=== PATIENT | male | born 1960 | race African-American/Black ===

== ENCOUNTER 2019-07-27 13:31 | Inpatient (IN) | payer BC ==
[2019-07-27] MEDS ORDERED: NORMAL SALINE IV ONE (13:50)
--- NOTE | 2019-07-27 13:53 | ER Document Report ---
ED Medical Screen (RME) - General Chief Complaint: Abdominal Pain Stated Complaint: BOWEL ISSUES Time Seen by Provider: 07/27/19 13:40 Primary Care Provider: ELIZ FLOYD MD [Primary Care Provider] - Follow up as needed Mode of Arrival: Medic Information source: Patient, Emergency Med Personnel Notes: 59-year-old male with history of high blood pressure presents to the emergency department via EMS for fever tachycardic with recent history of constipation. Reports he is never had a problem with constipation but for the past 5 days his stomach's been hurting and he has had trouble with his bowels. He is taken a laxative had a little bit of result but it was very hard. He now reports he is having trouble voiding. Denies testicular pain. Denies vomiting. EMS did give him 975 mg of Tylenol. Has not taken his blood pressure medication today. I have greeted and performed a rapid initial assessment of this patient. A comprehensive ED assessment and evaluation of the patient, analysis of test results and completion of the medical decision making process will be conducted by additional ED providers. - Related Data Allergies/Adverse Reactions: No Known Allergies Allergy (Unverified 07/27/19 13:36) Past Medical History - Past Medical History Cardiac Medical History: Reports: Hx Hypercholesterolemia, Hx Hypertension Physical Exam - Vital signs Vitals: Temp Pulse Resp BP Pulse Ox 101.4 F H 126 H 21 H 142/79 H 97 07/27/19 13:45 07/27/19 13:45 07/27/19 13:45 07/27/19 13:45 07/27/19 13:45 Course - Vital Signs Vital signs: Temp Pulse Resp BP Pulse Ox 101.4 F H 126 H 21 H 142/79 H 97 07/27/19 13:45 07/27/19 13:45 07/27/19 13:45 07/27/19 13:45 07/27/19 13:45 Doctor's Discharge - Discharge Referrals: ELIZ FLOYD MD [Primary Care Provider] - Follow up as needed
[2019-07-27 14:18] LABS: VENOUS BLOOD BASE EXCESS 1.6 mmol/L; VENOUS BLOOD HCO3 24.2 mmol/L (20-32); VENOUS BLOOD PCO2 32.3 mmHg (35-63); VENOUS BLOOD PH 7.49 (7.30-7.42)
[2019-07-27 14:20] LABS: HEMATOCRIT 41.2 % (37.9-51.0); HEMOGLOBIN 14.3 g/dL (13.5-17.0); MEAN CORPUSCULAR HEMOGLOBIN 28.8 pg (27.0-33.4); MEAN CORPUSCULAR HGB CONC 34.7 g/dL (32.0-36.0); MEAN CORPUSCULAR VOLUME 83 fl (80-97); PLATELET COUNT 230 10^3/uL (150-450); RED BLOOD COUNT 4.96 10^6/uL (4.35-5.55); RED CELL DISTRIBUTION WIDTH 12.9 % (11.5-14.0); WHITE BLOOD COUNT 21.1 10^3/uL (4.0-10.5)
[2019-07-27] MEDS ORDERED: CEFTRIAXONE 1 GM/D5W RTU 1 GM/50 ML RTUPB IV ONE (14:30)
[2019-07-27 14:34] LABS: INTERNATIONAL RATION (INR) 1.18; PROTHROMBIN TIME 15.1 SEC (11.4-15.4)
[2019-07-27 14:38] LABS: ALBUMIN 3.8 g/dL (3.5-5.0); ALKALINE PHOSPHATASE 177 U/L (38-126); ANION GAP 10 (5-19); ASPARTATE AMINO TRANSFERASE 88 U/L (17-59); BILIRUBIN,DIRECT 0.4 mg/dL (0.0-0.4); BILIRUBIN,TOTAL 0.8 mg/dL (0.2-1.3); BLOOD UREA NITROGEN 14 mg/dL (7-20); CALCIUM 9.2 mg/dL (8.4-10.2); CARBON DIOXIDE 26 mmol/L (22-30); CHLORIDE 95 mmol/L (98-107); GLUCOSE 121 mg/dL (75-110); POTASSIUM 4.1 mmol/L (3.6-5.0); TOTAL PROTEIN 7.5 g/dL (6.3-8.2)
[2019-07-27 14:45] LABS: ABSOLUTE LYMPHOCYTES# (MANUAL) 1.3 10^3/uL (0.5-4.7); ABSOLUTE MONOCYTES # (MANUAL) 2.7 10^3/uL (0.1-1.4); BASOPHILS % (MANUAL) 0 % (0-2); EOSINOPHILS % (MANUAL) 0 % (0-6); LYMPHOCYTES % (MANUAL) 6 % (13-45); MONOCYTES % (MANUAL) 13 % (3-13); SEGMENTED NEUTROPHILS % (MAN) 81 % (42-78); TOTAL CELLS COUNTED 100
[2019-07-27 14:47] LABS: PLATELET COMMENT ADEQUATE
[2019-07-27 15:49] LABS: APPEARANCE,URINE SLIGHTLY-CLOUDY; BILIRUBIN,URINE NEGATIVE (NEGATIVE); COLOR,URINE AMBER; GLUCOSE, URINE NEGATIVE (NEGATIVE); KETONES,URINE TRACE mg/dL (NEGATIVE); PROTEIN,URINE 30 mg/dL (NEGATIVE); URINE SPECIFIC GRAVITY 1.018
[2019-07-27] MEDS ORDERED: MORPHINE SULFATE 10 MG/ML INJ IV ONE ×2 (16:18→18:28)
[2019-07-27] MEDS ORDERED: ONDANSETRON HCL INJ/PF 4 MG/2 ML SDV IV ONE (16:19)
--- NOTE | 2019-07-27 18:15 | RADIOLOGY REPORT (SQ) ---
EXAM DESCRIPTION: CT ABD/PELVIS WITH IV ORAL IMAGES COMPLETED DATE/TIME: 07/27/2019 4:54 pm REASON FOR STUDY: abdominal pain. Diffuse abdominal pain. COMPARISON: None. TECHNIQUE: CT scan of the abdomen and pelvis performed using helical scanning technique with dynamic intravenous contrast injection. No oral contrast. Images reviewed with lung, soft tissue, and bone windows. Reconstructed coronal and sagittal MPR images reviewed. Delayed images for evaluation of the urinary system also acquired. All images stored on PACS. All CT scanners at this facility use dose modulation, iterative reconstruction, and/or weight based d osing when appropriate to reduce radiation dose to as low as reasonably achievable (ALARA). [facility]: Dose Right [facility]: CareDose [facility]: Dose Right [facility]: Teradose 4D [facility]: freee CONTRAST TYPE AND DOSE: contrast/concentration: Isovue 350.00 mg/ml; Total Contrast Delivered: 98.0 ml; Total Saline Delivered: 72.0 ml RENAL FUNCTION: Creatinine 1.11 today. RADIATION DOSE: CT Rad equipment meets quality standard of care and radiation dose reduction techniq ues were employed. CTDIvol: 9.3 - 13.6 mGy. DLP: 1343 mGy-cm.. LIMITATIONS: None. FINDINGS: LOWER CHEST: No significant findings. No nodules or infiltrates. LIVER: The liver has normal size and contour. There is mild diffuse hepatic steatosis. No focal hep atic mass. Hepatic and portal veins are patent. No biliary ductal dilation. SPLEEN: Normal size. No focal lesions. PANCREAS: No masses. No significant calcifications. No adjacent inflammation or peripancreatic fluid collections. Pancreatic duct not dilated. GALLBLADDER: No identified stones by CT criteria. No inflammatory changes to suggest cholecystitis. ADRENAL GLANDS: No significant masses or asymmetry. RIGHT KIDNEY AND URETER: No solid masses. No significant calcifications. There is mild hydronephr osis and hydroureter to the level of the urinary bladder. LEFT KIDNEY AND URETER: No solid masses. No significant calcifications. There is mild hydronephro sis and hydroureter to the level of the urinary bladder. AORTA AND VESSELS: No aneurysm. No dissection. Renal arteries, SMA, celiac without stenosis. RETROPERITONEUM: No retroperitoneal adenopathy, hemorrhage or masses. BOWEL AND PERITONEAL CAVITY: No masses or inflammatory changes. No free fluid or peritoneal masses. APPENDIX: Normal. PELVIS: The prostate is moderately enlarged with mass effect on the urinary bladder. Urinary bladder is markedly distended. No bladder wall thickening, intraluminal bladder mass or debris. ABDOMINAL WALL: No masses. No hernias. BONES: Moderate osteoarthritis bilateral hips. No suspicious bone lesions. OTHER: Bilateral hydroceles noted. IMPRESSION: 1. Markedly distended urinary bladder and mild bilateral hydronephrosis suggestive of bladder outlet obstruction. Clinical correlation. 2. Prostatomegaly. This may contribute to the bladder outlet obstruction. 3. Mild hepatic steatosis. TECHNICAL DOCUMENTATION: JOB ID: [id number] Quality ID # [id number]: Final reports with documentation of one or more dose reduction techniques (e.g., Au tomated exposure control, adjustment of the mA and/or kV according to patient size, use of iterative reconstruction technique) 2010 [employer]- All Rights Reserved Reading location - IP/workstation name: [email or web address]
[2019-07-27] MEDS ORDERED: LEVOFLOXACIN 750 MG/D5W RTU 750 MG/150 ML RTUPB IV ONE (18:29)
[2019-07-27] MEDS ORDERED: NORMAL SALINE 1000 ML 1,000 ML IV ONE ×2 (19:14→21:38)
--- NOTE | 2019-07-27 21:43 | RADIOLOGY REPORT (SQ) ---
EXAM DESCRIPTION: X-RAY CHEST 1 VIEW CLINICAL HISTORY: 59 years, Male, tachycardia COMPARISON: None. FINDINGS: Portable semiupright chest at 2124 hours on 07/27/2019. Two films are presented to include the costophrenic angles. EKG leads overlie the chest. The lungs are well expanded and clear. The costophrenic angles are sharp. The cardiac silhouette, hilar regions, trachea, soft tissues and bony structures are unremarkable aside from degenerative changes. IMPRESSION: No acute cardiopulmonary disease.
[2019-07-27 22:02] LABS: HEMATOCRIT 37.9 % (37.9-51.0); HEMOGLOBIN 12.9 g/dL (13.5-17.0); MEAN CORPUSCULAR HEMOGLOBIN 28.6 pg (27.0-33.4); MEAN CORPUSCULAR VOLUME 84 fl (80-97); PLATELET COUNT 212 10^3/uL (150-450); RED BLOOD COUNT 4.51 10^6/uL (4.35-5.55); RED CELL DISTRIBUTION WIDTH 13.1 % (11.5-14.0); WHITE BLOOD COUNT 21.6 10^3/uL (4.0-10.5)
[2019-07-27 22:20] LABS: ABSOLUTE LYMPHOCYTES# (MANUAL) 0.6 10^3/uL (0.5-4.7); ABSOLUTE MONOCYTES # (MANUAL) 1.9 10^3/uL (0.1-1.4); BAND NEUTROPHILS % (MANUAL) 4 % (3-5); BASOPHILS % (MANUAL) 0 % (0-2); EOSINOPHILS % (MANUAL) 0 % (0-6); LYMPHOCYTES % (MANUAL) 3 % (13-45); MONOCYTES % (MANUAL) 9 % (3-13); SEGMENTED NEUTROPHILS % (MAN) 84 % (42-78); TOTAL CELLS COUNTED 100
[2019-07-27 22:21] LABS: TOXIC GRANULATION 1+; TOXIC VACUOLATION PRESENT
[2019-07-27 22:22] LABS: BURR CELLS SLIGHT; PLATELET COMMENT ADEQUATE; POIKILOCYTOSIS SLIGHT
[2019-07-27 22:29] LABS: NT PRO BNP 781 pg/mL (<125)
[2019-07-27 22:32] LABS: TROPONIN I < 0.012 ng/mL
[2019-07-27 22:48] LABS: PROSTATE SPECIFIC ANTIGEN 9.13 ng/mL (<4.00)
[2019-07-27] MEDS ORDERED: HYDROMORPHONE HCL INJ/PF 2 MG/ML AMPULE IV ONE (23:17)
--- NOTE | 2019-07-28 00:27 | RADIOLOGY REPORT (SQ) ---
EXAM DESCRIPTION: CT pulmonary angiogram of the chest. CLINICAL HISTORY: 59 years Male; TACHYCARDIA, ELEVATED D DIMER TECHNIQUE: CT angiogram of the chest using intravenous contrast.. MIP reconstructions were performed. All CT scans at this facility use dose modulation, iterative reconstruction, and/or weight based dosing when appropriate to reduce radiation dose to as low as reasonably achievable. COMPARISON: None. FINDINGS: Chest: Vascular: No filling defects in the central pulmonary arteries. Lungs: Minimal volume loss is noted in the lung bases right greater than left. No focal consolidation. No pleural effusion or pneumothorax. Mediastinum: Heart size is normal. Coronary artery calcifications. No pericardial abnormality. No mediastinal or hilar lymphadenopathy. Small sliding hiatal hernia. Bones and soft tissues: Flowing syndesmophytes are seen in the anterior aspect of the thoracic spine. No destructive bone lesions. Soft tissues are unremarkable. No axillary lymphadenopathy. Small amount of soft tissues is seen deep to the nipples bilaterally consistent with very mild gynecomastia. Upper Abdomen: Visualized portion of the upper abdomen is unremarkable. IMPRESSION: 1. No pulmonary embolism. 2. Mild volume loss in the lung bases right greater than left.
[2019-07-28] MEDS ORDERED: PROMETHAZINE HCL INJ 25 MG/1 ML VIAL IV PRN (02:44)
[2019-07-28] MEDS ORDERED: MAG HYDROX/AL HYDROX/SIMETH SUSP 30 ML UDCUP PO PRN (02:44)
[2019-07-28] MEDS ORDERED: MAGNESIUM HYDROXIDE SUSP 30 ML UDCUP PO PRN (02:44)
[2019-07-28] MEDS ORDERED: ACETAMINOPHEN 325 MG TABLET PO PRN (02:49)
[2019-07-28] MEDS ORDERED: MORPHINE SULFATE 10 MG/ML INJ IV PRN ×3 (02:49)
[2019-07-28] MEDS ORDERED: LORAZEPAM INJ 2 MG/1 ML VIAL IV PRN (02:49)
[2019-07-28] MEDS ORDERED: NICOTINE 21 MG/24 HR PATCH.TD24 TD PRN (02:49)
[2019-07-28] MEDS ORDERED: HYDROMORPHONE HCL INJ/PF 2 MG/ML AMPULE IV PRN (02:55)
[2019-07-28] MEDS ORDERED: HYDROMORPHONE HCL INJ 2 MG/ML 20 ML MDV IV PRN ×3 (03:05)
[2019-07-28] MEDS ORDERED: HYDROCORTISONE ACETATE 25 MG SUPP.RECT PR PRN (05:54)
[2019-07-28] MEDS: HEPARIN SOD (PORCINE) 5,000 UNIT/ML 1 ML VIAL SUBCUT SCH ×3 (06:00→22:40)
[2019-07-28] MEDS: PANTOPRAZOLE SODIUM 40 MG TABLET.DR PO SCH ×2 (06:00→17:09)
--- NOTE | 2019-07-28 06:02 | PDOC H&P ---
History of Present Illness Admission Date/PCP: 07/28/2019 02:19 SILVIA ZAMBRANO MD Patient complains of: Constipation History of Present Illness: YUNI CHEN is a 59 year old male who presents the emergency room with a one-week history of constipation. He admits developing constipation about a week ago and tried [id number] laxatives without relief. 5 days ago he saw his primary care provider and was given a stool softener and rectal suppositories as treatment for hemorrhoids. He had very minimal results with this treatment and found that he had to strain very hard to produce very little stool. Since that time he is continued to be constipated and has developed difficulty passing his urine requiring a great deal of straining to produce very little urine with the need to urinate very frequently. He has also noted a gradually increasing pressure and fullness in his lower abdomen becoming exquisitely severe prior to his emergency room visit. He denies prior similar episodes. He denies other associated or accompanying signs and symptoms. He has not identified any additional aggravating or ameliorating factors for his constipation. In the emergency room he was found to have a fever of 101.4 F with a tachycardia in the 120s to 140s. His venous blood gases indicated severe hyperventilation. He was also noted to have a white blood count of 21,100 and a lactic acid of 2.1. He was treated with IV fluids and a Mack catheter was placed to remove approximately 2000 mL of urine from his urinary bladder. He was subsequently admitted to the hospital for further evaluation treatment. Past Medical History Cardiac Medical History: Reports: Hyperlipidema, Hypertension Denies: Atrial Fibrillation, Congestive Heart Failure, Coronary Artery Disease, DVT, Myocardial Infarction, Pulmonary Embolism Pulmonary Medical History: Denies: Asthma, Chronic Obstructive Pulmonary Disease (COPD) EENT Medical History: Denies: Cataracts, Ears - Hearing aids Neurological Medical History: Denies: Hemorrhagic CVA, Ischemic CVA, Seizures Endocrine Medical History: Denies: Diabetes Mellitus Type 1, Diabetes Mellitus Type 2, Hyperthyroidism, Hypothyroidism, Obesity Renal/ Medical History: Reports: Other - Benign prostatic hyperplasia Denies: Chronic Kidney Disease, Nephrolithiasis Malignancy Medical History: Reports: None GI Medical History: Denies: Cirrhosis, Crohn's Disease, Gastroesophageal Reflux Disease, Hepatitis, Peptic Ulcer Disease, Ulcerative Colitis Musculoskeltal Medical History: Denies: Arthritis, Gout Skin Medical History: Denies: Eczema, Psoriasis Psychiatric Medical History: Reports: Tobacco Dependency Denies: Alcohol Dependency, Substance Abuse Hematology: Denies: Anemia, Bleeding Tendencies Infectious Medical History: Reports: None Past Surgical History Past Surgical History: Reports: None Social History Information Source: Patient Lives with: Spouse/Significant other Smoking Status: Current Every Day Smoker Cigarettes Packs Per Day: 0.1 Electronic Cigarette use?: No Frequency of Alcohol Use: None Hx Recreational Drug Use: No Drugs: None Hx Prescription Drug Abuse: No - Advance Directive Resuscitation Status: Full Code Surrogate healthcare decision maker:: Florinda Chen Family History Family History: denies: CAD, CVA, DM, Hyperlipidemia, Hypertension, Malignancy Parental Family History Reviewed: Yes Children Family History Reviewed: No Sibling(s) Family History Reviewed.: Yes Medication/Allergy Home Medications: Amlodipine Besylate [Norvasc 10 mg Tablet] 10 mg PO DAILY 07/27/19 Atorvastatin Calcium [Lipitor 20 mg Tablet] 20 mg PO QHS 07/27/19 Ciprofloxacin HCl [Cipro 500 mg Tablet] 500 mg PO BID #20 tablet 07/27/19 Finasteride [Proscar 5 mg Tablet] 5 mg PO DAILY #30 tablet 07/27/19 Tamsulosin HCl [Flomax] 0.4 mg PO DAILY 07/27/19 Allergies/Adverse Reactions: No Known Allergies Allergy (Unverified 07/27/19 13:36) Review of Systems Constitutional: ABSENT: chills, fever(s) Eyes: ABSENT: visual disturbances, other - Eye pain Ears: ABSENT: hearing changes, other - Ear pain Nose, Mouth, and Throat: ABSENT: headache(s), sore throat Cardiovascular: ABSENT: chest pain, palpitations Respiratory: ABSENT: cough, dyspnea Gastrointestinal: PRESENT: as per HPI, abdominal pain, constipation. ABSENT: diarrhea, hematochezia, melena, nausea, vomiting Genitourinary: PRESENT: as per HPI, difficulty urinating, nocturia, other - Extreme urinary frequency. ABSENT: dysuria, hematuria Musculoskeletal: ABSENT: back pain, joint swelling, muscle weakness Integumentary: ABSENT: pruritus, rash Neurological: ABSENT: confusion, convulsions, focal weakness, memory loss, syncope Psychiatric: ABSENT: anxiety, depression Endocrine: ABSENT: cold intolerance, heat intolerance, polydipsia, polyphagia, polyuria Hematologic/Lymphatic: ABSENT: easy bleeding, easy bruising Allergic/Immunologic: ABSENT: seasonal rhinorrhea Physical Exam Vital Signs: Temp Pulse Resp BP Pulse Ox 99.8 F 126 H 25 H 152/84 H 94 07/27/19 20:20 07/27/19 13:45 07/28/19 01:00 07/27/19 23:02 07/28/19 01:00 Intake & Output 07/26/19 07/27/19 07/28/19 23:59 23:59 23:59 Intake Total 4790 Output Total 3425 Balance 1365 Weight 86.183 kg General appearance: PRESENT: no acute distress, cooperative Head exam: PRESENT: atraumatic, normocephalic Eye exam: ABSENT: conjunctival injection, scleral icterus Ear exam: PRESENT: normal external ear exam. ABSENT: bleeding, drainage Mouth exam: PRESENT: dry mucosa, neck supple Neck exam: ABSENT: thyromegaly, tracheal deviation Respiratory exam: PRESENT: clear to auscultation becca, symmetrical, unlabored Cardiovascular exam: PRESENT: RRR, tachycardia. ABSENT: clicks, gallop, rubs Vascular exam: PRESENT: normal capillary refill. ABSENT: pallor GI/Abdominal exam: PRESENT: normal bowel sounds, soft. ABSENT: tenderness Rectal exam: PRESENT: deferred Extremities exam: ABSENT: joint swelling, pedal edema Musculoskeletal exam: ABSENT: deformity, dislocation Neurological exam: PRESENT: CN II-XII grossly intact. ABSENT: alert, oriented to person, oriented to place, oriented to time, oriented to situation, motor sensory deficit Psychiatric exam: PRESENT: appropriate affect, normal mood Skin exam: PRESENT: dry, intact, warm. ABSENT: jaundice, rash, urticaria Results Laboratory Results: 07/27/19 21:49 07/27/19 14:00 07/27/19 07/27/19 07/27/19 14:00 14:00 14:00 WBC 21.1 H RBC 4.96 Hgb 14.3 Hct 41.2 MCV 83 MCH 28.8 MCHC 34.7 RDW 12.9 Plt Count 230 Seg Neutrophils % Not Reportable VBG pH 7.49 H VBG pCO2 32.3 L VBG HCO3 24.2 VBG Base Excess 1.6 Sodium 130.8 L Potassium 4.1 Chloride 95 L Carbon Dioxide 26 Anion Gap 10 BUN 14 Creatinine 1.11 Est GFR ( Amer) > 60 Glucose 121 H Lactic Acid Calcium 9.2 Total Bilirubin 0.8 AST 88 H Alkaline Phosphatase 177 H Total Protein 7.5 Albumin 3.8 Prostate Specific Ag TSH Urine Color Urine Appearance Urine pH Ur Specific [place] Urine Protein Urine Glucose (UA) Urine Ketones Urine Blood Urine RBC (Auto) 07/27/19 07/27/19 07/27/19 14:00 15:22 17:04 WBC RBC Hgb Hct MCV MCH MCHC RDW Plt Count Seg Neutrophils % VBG pH VBG pCO2 VBG HCO3 VBG Base Excess Sodium Potassium Chloride Carbon Dioxide Anion Gap BUN Creatinine Est GFR ( Amer) Glucose Lactic Acid 1.9 2.1 Calcium Total Bilirubin AST Alkaline Phosphatase Total Protein Albumin Prostate Specific Ag TSH Urine Color VIMAL Urine Appearance SLIGHTLY-CLOUDY Urine pH 5.0 Ur Specific [place] 1.018 Urine Protein 30 H Urine Glucose (UA) NEGATIVE Urine Ketones TRACE H Urine Blood NEGATIVE Urine RBC (Auto) 2 07/27/19 07/27/19 07/27/19 20:15 21:49 21:49 WBC 21.6 H RBC 4.51 Hgb 12.9 L Hct 37.9 MCV 84 MCH 28.6 MCHC 34.0 RDW 13.1 Plt Count 212 Seg Neutrophils % Not Reportable VBG pH VBG pCO2 VBG HCO3 VBG Base Excess Sodium Potassium Chloride Carbon Dioxide Anion Gap BUN Creatinine Est GFR ( Amer) Glucose Lactic Acid 1.0 Calcium Total Bilirubin AST Alkaline Phosphatase Total Protein Albumin Prostate Specific Ag TSH 1.91 Urine Color Urine Appearance Urine pH Ur Specific [place] Urine Protein Urine Glucose (UA) Urine Ketones Urine Blood Urine RBC (Auto) 07/27/19 21:49 WBC RBC Hgb Hct MCV MCH MCHC RDW Plt Count Seg Neutrophils % VBG pH VBG pCO2 VBG HCO3 VBG Base Excess Sodium Potassium Chloride Carbon Dioxide Anion Gap BUN Creatinine Est GFR ( Amer) Glucose Lactic Acid Calcium Total Bilirubin AST Alkaline Phosphatase Total Protein Albumin Prostate Specific Ag 9.130 H TSH Urine Color Urine Appearance Urine pH Ur Specific [place] Urine Protein Urine Glucose (UA) Urine Ketones Urine Blood Urine RBC (Auto) 07/27/19 07/27/19 21:49 21:49 Creatine Kinase 462 H Troponin I < 0.012 NT-Pro-B Natriuret Pep 781 H Impressions: Abdomen/Pelvis CT 07/27/19 00:00 IMPRESSION: 1. Markedly distended urinary bladder and mild bilateral hydronephrosis suggestive of bladder outlet obstruction. Clinical correlation. 2. Prostatomegaly. This may contribute to the bladder outlet obstruction. 3. Mild hepatic steatosis. Chest X-Ray 07/27/19 20:55 IMPRESSION: No acute cardiopulmonary disease. Chest/Abdomen CTA 07/27/19 23:16 IMPRESSION: 1. No pulmonary embolism. 2. Mild volume loss in the lung bases right greater than left. Assessment and Plan - Diagnosis (1) Acute urinary retention Is this a current diagnosis for this admission?: Yes (2) SIRS (systemic inflammatory response syndrome) Is this a current diagnosis for this admission?: Yes (3) Fever Qualifiers: Fever type: unspecified Qualified Code(s): R50.9 - Fever, unspecified Is this a current diagnosis for this admission?: Yes (4) Tachycardia Is this a current diagnosis for this admission?: Yes (5) Leukocytosis Qualifiers: Leukocytosis type: unspecified Qualified Code(s): D72.829 - Elevated white blood cell count, unspecified Is this a current diagnosis for this admission?: Yes (6) Elevated lactic acid level Is this a current diagnosis for this admission?: Yes (7) Prostatic hypertrophy Is this a current diagnosis for this admission?: Yes (8) Constipation Qualifiers: Constipation type: unspecified constipation type Qualified Code(s): K59.00 - Constipation, unspecified Is this a current diagnosis for this admission?: Yes (9) Hypertension Qualifiers: Hypertension type: essential hypertension Qualified Code(s): I10 - Essential (primary) hypertension Is this a current diagnosis for this admission?: Yes (10) Hyperlipidemia Qualifiers: Hyperlipidemia type: unspecified Qualified Code(s): E78.5 - Hyperlipidemia, unspecified Is this a current diagnosis for this admission?: Yes (11) Tobacco use disorder, continuous Is this a current diagnosis for this admission?: Yes - Plan Summary Summary: Patient is admitted to the telemetry floor where he will receive routine supportive and symptomatic cares. He will be continued on IV fluids and will also be continued with an indwelling Mack catheter. Urology consultation will be obtained when available. He will use Dilaudid 0.5 to 2 mg IV every 2 hours as needed for pain, using a sliding scale for dosage. He may have Ativan 1 mg IV every 4 hours as needed restlessness or anxiety. Serial lactic acids will be obtained. CBCs, metabolic profiles and magnesium levels will be obtained as needed. The patient's home medications for treatment of his hypertension and hyperlipidemia will be started, if appropriate, as soon as his medication list has been verified and reconciled. In the interim the patient will be treated with metoprolol tartrate 5 mg IV every 4 hours as needed for hypertension or tachycardia. Patient will be treated with a cardiac diet. A nicotine replacement patch will be available for the patient's use, if desired. - Time Time Spent with patient: 25-34 minutes Smoking Cessation Education: 3 to 10 minutes Medications reviewed and adjusted accordingly: Yes Anticipated discharge: Home - Inpatient Certification Based on my medical assessment, after consideration of the patient's comorbidities, presenting symptoms, or acuity I expect that the services needed warrant INPATIENT care.: Yes I certify that my determination is in accordance with my understanding of Medicare's requirements for reasonable and necessary INPATIENT services [42 CFR 412.3e].: Yes Medical Necessity: Need Close Monitoring Due to Risk of Patient Decompensation, Need For IV Fluids, Need For Continuous Telemetry Monitoring, Need for Pain Control, Risk of Complication if Not Cared For in Hospital, Risk of Diagnosis Which Will Require Inpatient Eval/Care/Monitoring
[2019-07-28] MEDS: TAMSULOSIN HCL 0.4 MG CAP.SR.24H PO SCH (10:12)
[2019-07-28] MEDS: DOCUSATE SODIUM 100 MG CAPSULE PO SCH ×2 (10:12→17:09)
--- NOTE | 2019-07-28 10:17 | ER Document Report ---
Entered by ALICE DELGADO SCRIBE 07/27/19 1516 Acting as scribe for:CAMERON VARGAS MD ED General <AKUA LEON IV - Last Filed: 07/28/19 01:52> - General Mode of Arrival: Medic Information source: Patient <CAMERON VARGAS - Last Filed: 07/28/19 10:17> - General Chief Complaint: Abdominal Pain Stated Complaint: BOWEL ISSUES Time Seen by Provider: 07/27/19 13:40 Notes: This 59-year-old male presents to the emergency department complaining of constipation for the past week. Patient said that his gave him a laxative 5 days ago which provided no relief. He scheduled a visit to his local physician that same day. Patient reports that physician stated that if he still had not had a stool by tomorrow then they would consider an enema. Patient said that night he had a stool but was strained and had pain. He called his physician and patient said that the physician treated him as he had hemorrhoids. Patient was prescribed stool softener and a suppository. Patient states that he has been taking these medications with no relief. Patient said that he now is having troubles with urinating. Patient states that he has to "push really hard for the urine to come out". Patient said that last night, he had no stool pass and was waking up every 20 minutes to use the restroom to urinate but still had to force the action. EMS and Nurse reports fever. Patient denies rectal bleeding. (CAMERON VARGAS) - Related Data Allergies/Adverse Reactions: No Known Allergies Allergy (Unverified 07/27/19 13:36) Past Medical History - General Information source: Patient, Emergency Med Personnel - Social History Smoking Status: Current Some Day Smoker Cigarette use (# per day): Yes Chew tobacco use (# tins/day): No Family History: Reviewed & Not Pertinent Patient has suicidal ideation: No Patient has homicidal ideation: No - Past Medical History Cardiac Medical History: Reports: Hx Hypercholesterolemia, Hx Hypertension Surgical Hx: Negative <CAMERON VARGAS - Last Filed: 07/28/19 10:17> Review of Systems - Review of Systems Constitutional: See HPI, Fever EENT: No symptoms reported Cardiovascular: No symptoms reported Respiratory: No symptoms reported Gastrointestinal: See HPI, Constipation. denies: Rectal bleeding Genitourinary: No symptoms reported Male Genitourinary: No symptoms reported Musculoskeletal: No symptoms reported Skin: No symptoms reported Hematologic/Lymphatic: No symptoms reported Neurological/Psychological: No symptoms reported -: Yes All other systems reviewed and negative <CAMERON VARGAS - Last Filed: 07/28/19 10:17> Physical Exam <VARGASCAMERON Farnaz - Last Filed: 07/28/19 10:17> - Vital signs Vitals: Resp Pulse Ox 22 H 98 07/27/19 13:42 07/27/19 13:42 - Notes Notes: Physical Exam: General: Alert, appears uncomfortable. Patient had an urine incontinence just prior to walking in the room for exam. HEENT: Normocephalic. Atraumatic. PERRL. Extraocular movements intact. Oropharynx clear. Dry mucous membrane. Neck: Supple. Non-tender. Respiratory: No respiratory distress. Clear and equal breath sounds bilaterally. Cardiovascular: Tachycardic. HR 130. No murmur. Abdominal: LQ tenderness to palpation on initial exam and after Mack catheter placed LQ is non-tender. No distension. Normal Bowel Sounds. Back: No gross abnormalities. Extremities: Moves all four extremities. Upper extremities: Normal inspection. Normal ROM. Lower extremities: Normal inspection. No edema. Normal ROM. Neurological: Normal cognition. AAOx4. Normal speech. Psychological: Normal affect. Normal Mood. Skin: Warm. Dry. Normal color. (CAMERON VARGAS) Course - Laboratory Result Diagrams: 07/27/19 21:49 07/27/19 14:00 - Consults DR. SILVA Time consulted: 01:47 - DR. SILVA AGREED TO ADMIT PT Consulted provider: will see as inpatient DR. ACUÑA Time consulted: 23:13 - AGREED THAT PT COULD HAVE CT CHEST DONE <AKUA LEON IV - Last Filed: 07/28/19 01:52> - Laboratory Result Diagrams: 07/27/19 21:49 07/27/19 14:00 - Diagnostic Test Radiology reviewed: Image reviewed, Reports reviewed - Transfer of Care Care transferred to following provider: Dr. Leon <CAMERON VARGAS - Last Filed: 07/28/19 10:17> - Re-evaluation Re-evalutation: 07/27/19 21:23 Patient has received 3+ liters of normal saline and still has a sinus tachycardi a rate of 125. Patient saturations 95%. Pending at this time is a portable chest x-ray to rule out cardiomegaly CHF. 07/27/19 21:33 Large from the radiology department there is VQ scan is not a ventilation perfusion scan at this time due to the all the circumstances going on with a viral illness coronavirus. Cell is only a perfusion scan is done which really does not give us the answer of any kind ventilation perfusion mismatch therefore the ventilation/perfusion VQ scan that was ordered is canceled. Plan is to determine if patient can receive another IV liter of fluids he is already impro ving down to sinus tach around 125 at this time. Patient will be signed out to Dr. leon to further evaluate patient's sinus tachycardia. (CAMERON VARGAS) - Vital Signs Vital signs: Temp Pulse Resp BP Pulse Ox 98.8 F 120 H 16 135/65 H 98 07/28/19 07:40 07/28/19 07:40 07/28/19 07:40 07/28/19 07:40 07/28/19 07:40 - Laboratory Laboratory results interpreted by me: 07/27/19 07/27/19 07/27/19 14:00 14:00 14:00 WBC 21.1 H Hgb Seg Neuts % (Manual) 81 H Lymphocytes % (Manual) 6 L Abs Neuts (Manual) 17.1 H Abs Monocytes (Manual) 2.7 H D-Dimer VBG pH 7.49 H VBG pCO2 32.3 L Sodium 130.8 L Chloride 95 L Glucose 121 H POC Glucose AST 88 H ALT 83 H Alkaline Phosphatase 177 H Creatine Kinase NT-Pro-B Natriuret Pep Prostate Specific Ag Urine Protein Urine Ketones Urine Urobilinogen 07/27/19 07/27/19 07/27/19 14:08 15:22 21:49 WBC 21.6 H Hgb 12.9 L Seg Neuts % (Manual) 84 H Lymphocytes % (Manual) 3 L Abs Neuts (Manual) 19.0 H Abs Monocytes (Manual) 1.9 H D-Dimer VBG pH VBG pCO2 Sodium Chloride Glucose POC Glucose 113 H AST ALT Alkaline Phosphatase Creatine Kinase NT-Pro-B Natriuret Pep Prostate Specific Ag Urine Protein 30 H Urine Ketones TRACE H Urine Urobilinogen 2.0 H 07/27/19 07/27/19 07/27/19 21:49 21:49 21:49 WBC Hgb Seg Neuts % (Manual) Lymphocytes % (Manual) Abs Neuts (Manual) Abs Monocytes (Manual) D-Dimer 4.34 H VBG pH VBG pCO2 Sodium Chloride Glucose POC Glucose AST ALT Alkaline Phosphatase Creatine Kinase 462 H NT-Pro-B Natriuret Pep 781 H Prostate Specific Ag 9.130 H Urine Protein Urine Ketones Urine Urobilinogen Patient's urinalysis does not disclose any evidence for infection. 07/27/19 21:24 (CAMERON VARGAS) - Diagnostic Test Radiology results interpreted by me: 07/27/19 21:23 CT scan of abdomen pelvis with oral and IV contrast disclose bladder outlet obstruction due to prostate megaly. Patient also had bilateral hydronephrosis on both sides. Patient has a normal kidney function at this time. 07/27/19 21:39 Chest x-ray does not show cardiomegaly or any signs of congestive heart failure. Normal-sized heart bones look dense or hyperdense. No fracture seen ribs appear to be expanded space between the ribs question whether or not patient has COPD. (CAMERON VARGAS) - EKG Interpretation by Me Additional EKG results interpreted by me: 07/27/19 21:22 Twelve-lead EKG done today 918. Shows sinus tachycardia rate of [address]-T wave changes. (CAMERON VARGAS) - Consults DR. SILVA Reason for consultation: 07/28/19 01:47 SIRS (AKUA LEON IV) DR. ACUÑA Reason for consultation: 07/28/19 01:53 CLEARANCE FOR CTA CHEST (AKUA LEON IV) Discharge - Discharge Admitting Provider: Todd (Hospitalist) Unit Admitted: Telemetry <AKUA LEON IV - Last Filed: 07/28/19 01:52> <CAMERON VARGAS - Last Filed: 07/28/19 10:17> - Discharge Clinical Impression: Bladder outlet obstruction, Sinus tachycardia, SIRS (systemic inflammatory response syndrome) Leukocytosis Qualifiers: Leukocytosis type: other Qualified Code(s): D72.828 - Other elevated white blood cell count Condition: Good Disposition: ADMITTED INPATIENT I personally performed the services described in the documentation, reviewed and edited the documentation which was dictated to the scribe in my presence, and it accurately records my words and actions.
--- NOTE | 2019-07-28 10:48 | Progress Note ---
Provider Note Provider Note: 07/28/2019 Patient was admitted through the emergency room last night for what was thought to be constipation. However CT of the chest as well as abdomen and pelvis revealed hydronephrosis and a "full bladder" as well as a significantly enlarged prostate. This was actually causing bladder outlet obstruction. Patient tells me about 6 days ago he started having abdominal pain and unable to have a bowel movement. He actually went to an urgent care and they told him to do [id number] laxatives and stool softeners and fleets enemas. Doubt he has not been voiding hardly at all this week due to his enlarged prostate. This caused him to have constipation issues as well, none of his radiographic studies show bowel obstruction or a large amount of stool. Patient states he is never been told he had prostate problems before and is never been to a urologist. 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 She was given Flomax last night in the emergency room. Patient was given also a dose of IV Rocephin and Levaquin in the ER. His white count was elevated to 21,000 on admission and patient did have a fever of 101.4 This morning his temperature is 98.7 still slightly tachycardic at 130 blood pressure is up 152/84. Lactic acid level is normal. Dimer was elevated to 4.[address] angiogram was negative for PE.. Also last night in the ER patient had a Mack catheter inserted which resulted in 2 L of fluid Going to continue patient on IV antibiotics, continue Mack catheter, continue proscar 5 mg daily and add Cardura 2 mg at nighttime. Probably discharge patient tomorrow with a Mack catheter in place, leg bag, also continue antibiotics and also continue meds for BPH. Also need a appointment as an outpatient with urology.
--- NOTE | 2019-07-28 11:04 | EKG REPORT ---
SEVERITY:- OTHERWISE NORMAL ECG - SINUS TACHYCARDIA : Confirmed by: Yin Sen 28-Jul-2019 11:04:08
--- NOTE | 2019-07-28 11:04 | EKG REPORT ---
SEVERITY:- OTHERWISE NORMAL ECG - SINUS TACHYCARDIA : Confirmed by: Yin Sen 28-Jul-2019 11:03:58
[2019-07-28] MEDS: FINASTERIDE 5 MG TABLET PO SCH (12:51)
[2019-07-28] MEDS: METOPROLOL TARTRATE PF/INJ 5 MG/5 ML SDV IV PRN ×2 (16:05→20:29)
[2019-07-28] MEDS ORDERED: DOXAZOSIN MESYLATE 2 MG TABLET PO SCH (22:00)
[2019-07-28] MEDS: ATORVASTATIN CALCIUM 20 MG TABLET PO SCH (22:40)
[2019-07-29] MEDS: PANTOPRAZOLE SODIUM 40 MG TABLET.DR PO SCH ×2 (05:41→17:04)
[2019-07-29] MEDS: HEPARIN SOD (PORCINE) 5,000 UNIT/ML 1 ML VIAL SUBCUT SCH ×3 (05:41→22:25)
[2019-07-29 06:03] LABS: HEMOGLOBIN 12.7 g/dL (13.5-17.0); MEAN CORPUSCULAR HEMOGLOBIN 28.6 pg (27.0-33.4); MEAN CORPUSCULAR HGB CONC 34.3 g/dL (32.0-36.0); MEAN CORPUSCULAR VOLUME 84 fl (80-97); PLATELET COUNT 211 10^3/uL (150-450); RED BLOOD COUNT 4.44 10^6/uL (4.35-5.55); RED CELL DISTRIBUTION WIDTH 13.1 % (11.5-14.0); WHITE BLOOD COUNT 21.5 10^3/uL (4.0-10.5)
[2019-07-29 06:39] LABS: ALBUMIN 3.1 g/dL (3.5-5.0); ALKALINE PHOSPHATASE 193 U/L (38-126); ANION GAP 11 (5-19); ASPARTATE AMINO TRANSFERASE 116 U/L (17-59); BILIRUBIN,DIRECT 0.2 mg/dL (0.0-0.4); BILIRUBIN,TOTAL 0.6 mg/dL (0.2-1.3); BLOOD UREA NITROGEN 12 mg/dL (7-20); CALCIUM 8.5 mg/dL (8.4-10.2); CARBON DIOXIDE 22 mmol/L (22-30); CHLORIDE 99 mmol/L (98-107); CHOLESTEROL 102.69 mg/dL (0-200); GLUCOSE 93 mg/dL (75-110); POTASSIUM 3.7 mmol/L (3.6-5.0); TOTAL PROTEIN 6.2 g/dL (6.3-8.2); TRIGLYCERIDES 166 mg/dL (<150)
[2019-07-29 06:50] LABS: DIRECT LDL 32 mg/dL (<100)
[2019-07-29 06:52] LABS: VLDL CHOLESTEROL 33.2 mg/dL (10-31)
[2019-07-29] MEDS: LEVOFLOXACIN 750 MG/D5W RTU 750 MG/150 ML RTUPB IV SCH (10:22)
[2019-07-29] MEDS: TAMSULOSIN HCL 0.4 MG CAP.SR.24H PO SCH (10:22)
[2019-07-29] MEDS: FINASTERIDE 5 MG TABLET PO SCH (10:22)
[2019-07-29] MEDS: DOCUSATE SODIUM 100 MG CAPSULE PO SCH (10:22)
[2019-07-29] MEDS ORDERED: DIPHENOXYLATE HCL/ATROP SULF 2.5-0.025 MG TABLET PO PRN (13:04)
--- NOTE | 2019-07-29 13:31 | PDOC PROGRESS REPORT ---
Subjective Progress Note for:: 07/29/19 Reason For Visit: ACUTE URINARY RETENTION, SIRS 07/29/2019 She was admitted for acute urinary retention secondary to bladder outlet obstruction secondary to prostamegaly. Patient also had constipation Physical Exam Vital Signs: Temp Pulse Resp BP Pulse Ox 100.0 F 90 18 114/62 95 07/29/19 07:34 07/29/19 07:34 07/29/19 07:34 07/29/19 07:34 07/29/19 07:34 Intake & Output 07/28/19 07/29/19 07/30/19 06:59 06:59 06:59 Intake Total 4790 1200 150 Output Total 4700 1750 Balance 90 -550 150 Weight 88.6 kg 88.7 kg General appearance: PRESENT: mild distress, other - Secondary to diarrhea Respiratory exam: PRESENT: clear to auscultation becca. ABSENT: rales, rhonchi, wheezes Cardiovascular exam: PRESENT: RRR. ABSENT: diastolic murmur, rubs, systolic murmur Rectal exam: PRESENT: other - diarrhea with a foul odor Neurological exam: PRESENT: alert, awake, oriented to person, oriented to place, oriented to time, oriented to situation, CN II-XII grossly intact. ABSENT: motor sensory deficit Psychiatric exam: PRESENT: appropriate affect, normal mood. ABSENT: homicidal ideation, suicidal ideation Results Laboratory Results: 07/29/19 05:12 07/29/19 05:12 07/29/19 07/29/19 05:12 05:12 WBC 21.5 H RBC 4.44 Hgb 12.7 L Hct 37.0 L MCV 84 MCH 28.6 MCHC 34.3 RDW 13.1 Plt Count 211 Sodium 131.8 L Potassium 3.7 Chloride 99 Carbon Dioxide 22 Anion Gap 11 BUN 12 Creatinine 1.12 Est GFR ( Amer) > 60 Glucose 93 Calcium 8.5 Magnesium 1.8 Total Bilirubin 0.6 AST 116 H Alkaline Phosphatase 193 H Total Protein 6.2 L Albumin 3.1 L Triglycerides 166 H Cholesterol 102.69 LDL Cholesterol Direct 32 VLDL Cholesterol 33.2 H HDL Cholesterol 14 L 07/27/19 15:22 Clean Catch Midstream Urine Culture - Final NO GROWTH 2 DAYS 07/27/19 07/27/19 21:49 21:49 Creatine Kinase 462 H Troponin I < 0.012 NT-Pro-B Natriuret Pep 781 H Impressions: Abdomen/Pelvis CT 07/27/19 00:00 IMPRESSION: 1. Markedly distended urinary bladder and mild bilateral hydronephrosis suggestive of bladder outlet obstruction. Clinical correlation. 2. Prostatomegaly. This may contribute to the bladder outlet obstruction. 3. Mild hepatic steatosis. Chest X-Ray 07/27/19 20:55 IMPRESSION: No acute cardiopulmonary disease. Chest/Abdomen CTA 07/27/19 23:16 IMPRESSION: 1. No pulmonary embolism. 2. Mild volume loss in the lung bases right greater than left. Assessment and Plan - Diagnosis (1) Acute urinary retention Is this a current diagnosis for this admission?: Yes (2) Bladder outlet obstruction Is this a current diagnosis for this admission?: Yes (3) Constipation Qualifiers: Constipation type: unspecified constipation type Qualified Code(s): K59.00 - Constipation, unspecified Is this a current diagnosis for this admission?: Yes (4) Fever Qualifiers: Fever type: unspecified Qualified Code(s): R50.9 - Fever, unspecified Is this a current diagnosis for this admission?: Yes (5) Hypertension Qualifiers: Hypertension type: essential hypertension Qualified Code(s): I10 - Essential (primary) hypertension Is this a current diagnosis for this admission?: Yes (6) Leukocytosis Qualifiers: Leukocytosis type: unspecified Qualified Code(s): D72.829 - Elevated white blood cell count, unspecified Is this a current diagnosis for this admission?: Yes (7) Prostatic hypertrophy Is this a current diagnosis for this admission?: Yes (8) SIRS (systemic inflammatory response syndrome) Is this a current diagnosis for this admission?: Yes - Plan Summary Summary: Patient is admitted to the telemetry floor where he will receive routine supportive and symptomatic cares. He will be continued on IV fluids and will also be continued with an indwelling Mack catheter. Urology consultation will be obtained when available. He will use Dilaudid 0.5 to 2 mg IV every 2 hours as needed for pain, using a sliding scale for dosage. He may have Ativan 1 mg IV every 4 hours as needed restlessness or anxiety. Serial lactic acids will be obtained. CBCs, metabolic profiles and magnesium levels will be obtained as needed. The patient's home medications for treatment of his hypertension and hyperlipidemia will be started, if appropriate, as soon as his medication list has been verified and reconciled. In the interim the patient will be treated with metoprolol tartrate 5 mg IV every 4 hours as needed for hypertension or tachycardia. Patient will be treated with a cardiac diet. A nicotine replacement patch will be available for the patient's use, if desired. 07/29/2019 Last night at 0500 temperature was 98.9 this morning at 0730 was 100.0 On admission white count was 21,100 later the same day 21,600 today 21,500 Urine cultures have come back negative x48 hours blood cultures negative x24 hours Patient yesterday and today is now having foul-smelling watery stools. Patient has been constipated for over a week he was given some prune juice yesterday and ever since then has had incontinent stool. PSA done on the date of admission is 9.13 however is not known if this was done prior to insertion of the Mack catheter or after. Patient is currently on Flomax, and Levaquin was started today. I spoke to urology today at [facility]. He recommended that we discharge the patient home we do so with a Mack catheter in place. Have the patient remove the Mack catheter the night before his appointment with urology. Also recommended that only the Flomax would be indicated at this time. I also asked the urologist about further studies, he said at this time nothing else seem to indicate further studies were needed. Patient was to be discharged today but due to his incontinent of stool I am checking him for C. difficile, treating him with Lomotil. We will continue the Levaquin IV until discharge at which time he should be switched to p.o.. Urine culture and blood cultures are negative. I have explained to the patient how to remove the Mack and he will get this teaching from nursing prior to discharge as well. Urology said they should see him about 7 days after discharge from the hospital. I have had a discussion with the patient concerning the above Patient was admitted with urinary obstruction, constipation, prostamegaly, fever, leuko-cytosis - Time Time Spent with patient: 35 or more minutes
--- NOTE | 2019-07-29 13:33 | RADIOLOGY REPORT (SQ) ---
EXAM DESCRIPTION: KUB/ABDOMEN (SINGLE VIEW) IMAGES COMPLETED DATE/TIME: 07/29/2019 1:22 pm REASON FOR STUDY: constipation/diarrhea COMPARISON: None. NUMBER OF VIEWS: One view. TECHNIQUE: Supine radiographic image of the abdomen acquired. LIMITATIONS: None. FINDINGS: BOWEL GAS PATTERN: Gas pattern is nonspecific. There is contrast throughout the colon fro m prior CT abdomen and pelvis. CALCIFICATIONS: No suspicious calcifications. SOFT TISSUES: No gross mass or suggestion of organomegaly. HARDWARE: None in the abdomen. BONES: No acute fracture. No worrisome bone lesions. OTHER: No other significant finding. IMPRESSION: NO RADIOGRAPHIC EVIDENCE FOR ACUTE ABDOMINAL DISEASE. TECHNICAL DOCUMENTATION: JOB ID: [id number] [employer]- All Rights Reserved Reading location - IP/workstation name: [email or web address]
[2019-07-29] MEDS: ATORVASTATIN CALCIUM 20 MG TABLET PO SCH (22:25)
[2019-07-29] MEDS: METOPROLOL TARTRATE PF/INJ 5 MG/5 ML SDV IV PRN (22:25)
[2019-07-30 05:28] LABS: C DIFFICILE GDH NEGATIVE (NEGATIVE)
[2019-07-30 05:47] LABS: HEMATOCRIT 35.4 % (37.9-51.0); HEMOGLOBIN 12.1 g/dL (13.5-17.0); MEAN CORPUSCULAR HEMOGLOBIN 28.8 pg (27.0-33.4); MEAN CORPUSCULAR HGB CONC 34.3 g/dL (32.0-36.0); MEAN CORPUSCULAR VOLUME 84 fl (80-97); PLATELET COUNT 220 10^3/uL (150-450); RED BLOOD COUNT 4.21 10^6/uL (4.35-5.55); RED CELL DISTRIBUTION WIDTH 13.1 % (11.5-14.0); WHITE BLOOD COUNT 15.8 10^3/uL (4.0-10.5)
[2019-07-30] MEDS: PANTOPRAZOLE SODIUM 40 MG TABLET.DR PO SCH ×2 (05:55→18:06)
[2019-07-30] MEDS: HEPARIN SOD (PORCINE) 5,000 UNIT/ML 1 ML VIAL SUBCUT SCH ×3 (05:55→21:19)
[2019-07-30] MEDS: LEVOFLOXACIN 750 MG/D5W RTU 750 MG/150 ML RTUPB IV SCH (10:22)
[2019-07-30] MEDS: TAMSULOSIN HCL 0.4 MG CAP.SR.24H PO SCH (10:22)
--- NOTE | 2019-07-30 11:58 | PDOC PROGRESS REPORT ---
Subjective Progress Note for:: 07/30/19 Subjective:: 59-year-old male admitted with acute urinary retention secondary to bladder outlet obstruction due to enlarged prostate. He is with a Mack's catheter plan is to discharge him home tomorrow with Mack's catheter and advises to follow-up with neurologist in 1 week and to remove Mack's catheter 1 day prior to urology appointment. No acute events in the last 24 hours. Afebrile. C. difficile came back negative. No complaints of loose stools today. WBC count is still elevated at 15,800. Reason For Visit: ACUTE URINARY RETENTION, SIRS Physical Exam Vital Signs: Temp Pulse Resp BP Pulse Ox 98.5 F 116 H 18 130/75 H 100 07/30/19 00:25 07/30/19 07:00 07/30/19 00:25 07/30/19 00:25 07/30/19 00:25 Intake & Output 07/29/19 07/30/19 07/31/19 06:59 06:59 06:59 Intake Total 1200 1010 Output Total 1750 1400 Balance -550 -390 Weight 88.7 kg 85.3 kg General appearance: PRESENT: no acute distress, well-developed Head exam: PRESENT: atraumatic Eye exam: PRESENT: PERRLA Mouth exam: PRESENT: moist, tongue midline Teeth exam: PRESENT: poor dentation Neck exam: ABSENT: carotid bruit, JVD, lymphadenopathy, thyromegaly Respiratory exam: PRESENT: decreased breath sounds Cardiovascular exam: PRESENT: RRR. ABSENT: diastolic murmur, rubs, systolic murmur GI/Abdominal exam: PRESENT: normal bowel sounds, soft. ABSENT: distended, guarding, mass, organolmegaly, rebound, tenderness Rectal exam: PRESENT: deferred Gentrourinary exam: PRESENT: indwelling catheter Extremities exam: PRESENT: full ROM. ABSENT: calf tenderness, clubbing, pedal edema Neurological exam: PRESENT: alert, awake, oriented to person, oriented to place, oriented to time, oriented to situation, CN II-XII grossly intact. ABSENT: talat r sensory deficit Results Laboratory Results: 07/30/19 05:21 07/29/19 05:12 07/30/19 05:21 WBC 15.8 H RBC 4.21 L Hgb 12.1 L Hct 35.4 L MCV 84 MCH 28.8 MCHC 34.3 RDW 13.1 Plt Count 220 07/27/19 07/27/19 21:49 21:49 Creatine Kinase 462 H Troponin I < 0.012 NT-Pro-B Natriuret Pep 781 H Impressions: Abdomen/Pelvis CT 07/27/19 00:00 IMPRESSION: 1. Markedly distended urinary bladder and mild bilateral hydronephrosis suggestive of bladder outlet obstruction. Clinical correlation. 2. Prostatomegaly. This may contribute to the bladder outlet obstruction. 3. Mild hepatic steatosis. Chest X-Ray 07/27/19 20:55 IMPRESSION: No acute cardiopulmonary disease. Chest/Abdomen CTA 07/27/19 23:16 IMPRESSION: 1. No pulmonary embolism. 2. Mild volume loss in the lung bases right greater than left. KUB X-Ray 07/29/19 00:00 IMPRESSION: NO RADIOGRAPHIC EVIDENCE FOR ACUTE ABDOMINAL DISEASE. Assessment and Plan - Diagnosis (1) Acute urinary retention Is this a current diagnosis for this admission?: Yes Plan: 07/30/2019-patient admitted with acute urinary retention secondary to bladder outlet obstruction due to enlarged prostate. He is going home tomorrow with Mack's catheter. (2) Bladder outlet obstruction Is this a current diagnosis for this admission?: Yes (3) Constipation Qualifiers: Constipation type: unspecified constipation type Qualified Code(s): K59.00 - Constipation, unspecified Is this a current diagnosis for this admission?: Yes (4) Fever Qualifiers: Fever type: unspecified Qualified Code(s): R50.9 - Fever, unspecified Is this a current diagnosis for this admission?: Yes Plan: 07/30/2019-patient has a temperature of 98.5. Afebrile. Fever is resolved. (5) Hypertension Qualifiers: Hypertension type: essential hypertension Qualified Code(s): I10 - Essential (primary) hypertension Is this a current diagnosis for this admission?: No Plan: 07/30/2019-patient blood pressure today is 130/75. Stable. Plan is to continue the present management. (6) Leukocytosis Qualifiers: Leukocytosis type: unspecified Qualified Code(s): D72.829 - Elevated white blood cell count, unspecified Is this a current diagnosis for this admission?: Yes Plan: 07/30/2019-patient admitted with a WBC count of 21,000 improving daily it is 15,800 today. And is presently on IV levo floxacillin. Cultures are negative and stool work-up is negative including C. difficile. (7) Prostatic hypertrophy Is this a current diagnosis for this admission?: Yes (8) SIRS (systemic inflammatory response syndrome) Is this a current diagnosis for this admission?: Yes Plan: 07/30/2019-patient came in with elevated WBC count and elevated lactic acid levels meeting the criteria for SIRS. - Plan Summary Summary: Patient is admitted to the telemetry floor where he will receive routine suppo rtive and symptomatic cares. He will be continued on IV fluids and will also be continued with an indwelling Mack catheter. Urology consultation will be obtained when available. He will use Dilaudid 0.5 to 2 mg IV every 2 hours as needed for pain, using a sliding scale for dosage. He may have Ativan 1 mg IV every 4 hours as needed restlessness or anxiety. Serial lactic acids will be obtained. CBCs, metabolic profiles and magnesium levels will be obtained as needed. The patient's home medications for treatment of his hypertension and hyperlipidemia will be started, if appropriate, as soon as his medication list has been verified and reconciled. In the interim the patient will be treated with metoprolol tartrate 5 mg IV every 4 hours as needed for hypertension or tachycardia. Patient will be treated with a cardiac diet. A nicotine replacement patch will be available for the patient's use, if desired. 07/29/2019 Last night at 0500 temperature was 98.9 this morning at 0730 was 100.0 On admission white count was 21,100 later the same day 21,600 today 21,500 Urine cultures have come back negative x48 hours blood cultures negative x24 hours Patient yesterday and today is now having foul-smelling watery stools. Patient has been constipated for over a week he was given some prune juice yesterday and ever since then has had incontinent stool. PSA done on the date of admission is 9.13 however is not known if this was done prior to insertion of the Mack catheter or after. Patient is currently on Flomax, and Levaquin was started today. I spoke to urology today at [facility]. He recommended that we discharge the patient home we do so with a Mack catheter in place. Have the patient remove the Mack catheter the night before his appointment with urology. Also sharmila mmended that only the Flomax would be indicated at this time. I also asked the urologist about further studies, he said at this time nothing else seem to indicate further studies were needed. Patient was to be discharged today but due to his incontinent of stool I am checking him for C. difficile, treating him with Lomotil. We will continue the Levaquin IV until discharge at which time he should be switched to p.o.. Urine culture and blood cultures are negative. I have explained to the patient how to remove the Mack and he will get this teaching from nursing prior to discharge as well. Urology said they should see him about 7 days after discharge from the hospital. I have had a discussion with the patient concerning the above Patient was admitted with urinary obstruction, constipation, prostamegaly, fever, leuko-cytosis
[2019-07-30] MEDS: ATORVASTATIN CALCIUM 20 MG TABLET PO SCH (21:19)
[2019-07-31 05:55] LABS: HEMATOCRIT 37.9 % (37.9-51.0); MEAN CORPUSCULAR HEMOGLOBIN 28.5 pg (27.0-33.4); MEAN CORPUSCULAR HGB CONC 34.2 g/dL (32.0-36.0); MEAN CORPUSCULAR VOLUME 83 fl (80-97); PLATELET COUNT 215 10^3/uL (150-450); RED BLOOD COUNT 4.56 10^6/uL (4.35-5.55); RED CELL DISTRIBUTION WIDTH 13.3 % (11.5-14.0); WHITE BLOOD COUNT 10.6 10^3/uL (4.0-10.5)
[2019-07-31] MEDS: HEPARIN SOD (PORCINE) 5,000 UNIT/ML 1 ML VIAL SUBCUT SCH ×3 (06:23→21:52)
[2019-07-31] MEDS: PANTOPRAZOLE SODIUM 40 MG TABLET.DR PO SCH ×2 (06:23→18:39)
[2019-07-31] MEDS: TAMSULOSIN HCL 0.4 MG CAP.SR.24H PO SCH (09:39)
[2019-07-31] MEDS: LEVOFLOXACIN 750 MG TABLET PO SCH (09:39)
--- NOTE | 2019-07-31 10:51 | PDOC PROGRESS REPORT ---
Subjective Progress Note for:: 07/31/19 Subjective:: 59-year-old male admitted with acute urinary retention secondary to bladder outlet obstruction due to enlarged prostate. He is with a Mack's catheter plan is to discharge him home tomorrow with Mack's catheter and advises to follow-up with neurologist in 1 week and to remove Mack's catheter 1 day prior to urology appointment. No acute events in the last 24 hours. Afebrile. C. difficile came back negative. No complaints of loose stools today. WBC count is still elevated at 15,800. [id number] male admitted for acute urinary retention secondary to prostate enlargement with a Mack's catheter he complains of severe diarrhea until yesterday C. difficile came back negative. On examination today found to have a foul-smelling pressure wounds on the buttocks. Call Dr. Acuña and he agreed to look at the patient today. Patient is going to hear of at least another day until surgery made the recommendations. Reason For Visit: ACUTE URINARY RETENTION, SIRS Physical Exam Vital Signs: Temp Pulse Resp BP Pulse Ox 98.7 F 101 H 16 109/78 98 07/31/19 07:44 07/31/19 07:44 07/31/19 07:44 07/31/19 07:44 07/31/19 07:44 Intake & Output 07/30/19 07/31/19 08/01/19 06:59 06:59 06:59 Intake Total 1010 610 Output Total 1400 1625 Balance -390 -1015 Weight 85.3 kg 85.3 kg General appearance: PRESENT: no acute distress, well-developed Head exam: PRESENT: atraumatic Eye exam: PRESENT: PERRLA Mouth exam: PRESENT: moist, tongue midline Neck exam: ABSENT: carotid bruit, JVD, lymphadenopathy, thyromegaly Respiratory exam: PRESENT: decreased breath sounds Cardiovascular exam: PRESENT: RRR. ABSENT: diastolic murmur, rubs, systolic murmur GI/Abdominal exam: PRESENT: normal bowel sounds, soft. ABSENT: distended, guard ing, mass, organolmegaly, rebound, tenderness Rectal exam: PRESENT: deferred Extremities exam: PRESENT: full ROM. ABSENT: calf tenderness, clubbing, pedal edema Psychiatric exam: PRESENT: appropriate affect, normal mood. ABSENT: homicidal ideation, suicidal ideation Skin exam: PRESENT: other - Pressure wounds on the buttocks. In my opinion stage is 2 Results Laboratory Results: 07/31/19 05:33 07/29/19 05:12 07/31/19 05:33 WBC 10.6 H RBC 4.56 Hgb 13.0 L Hct 37.9 MCV 83 MCH 28.5 MCHC 34.2 RDW 13.3 Plt Count 215 07/27/19 07/27/19 21:49 21:49 Creatine Kinase 462 H Troponin I < 0.012 NT-Pro-B Natriuret Pep 781 H Impressions: Abdomen/Pelvis CT 07/27/19 00:00 IMPRESSION: 1. Markedly distended urinary bladder and mild bilateral hydronephrosis chun ggestive of bladder outlet obstruction. Clinical correlation. 2. Prostatomegaly. This may contribute to the bladder outlet obstruction. 3. Mild hepatic steatosis. Chest X-Ray 07/27/19 20:55 IMPRESSION: No acute cardiopulmonary disease. Chest/Abdomen CTA 07/27/19 23:16 IMPRESSION: 1. No pulmonary embolism. 2. Mild volume loss in the lung bases right greater than left. KUB X-Ray 07/29/19 00:00 IMPRESSION: NO RADIOGRAPHIC EVIDENCE FOR ACUTE ABDOMINAL DISEASE. Assessment and Plan - Diagnosis (1) Acute urinary retention Is this a current diagnosis for this admission?: Yes Plan: 07/30/2019-patient admitted with acute urinary retention secondary to bladder outlet obstruction due to enlarged prostate. He is going home tomorrow with Mack's catheter. 07/31/2019-patient still has a Mack's catheter in place plan is to discharge him home with a Mack's catheter once is stable and he needs to follow-up with urology as an outpatient for enlarged prostate causing the bladder outlet obst ruction. (2) Bladder outlet obstruction Is this a current diagnosis for this admission?: Yes Plan: 07/31/2019-patient admitted with bladder outlet obstruction Mack's catheter in place. He will go home with a Mack's catheter and do the follow-up with urology. (3) Constipation Qualifiers: Constipation type: unspecified constipation type Qualified Code(s): K59.00 - Constipation, unspecified Is this a current diagnosis for this admission?: Yes (4) Fever Qualifiers: Fever type: unspecified Qualified Code(s): R50.9 - Fever, unspecified Is this a current diagnosis for this admission?: Yes Plan: 07/30/2019-patient has a temperature of 98.5. Afebrile. Fever is resolved. 07/31/2019-T-max is 99.1 today. Patient is receiving antibiotics at this time. blood Cultures and urine cultures are negative. (5) Hypertension Qualifiers: Hypertension type: essential hypertension Qualified Code(s): I10 - Essential (primary) hypertension Is this a current diagnosis for this admission?: No Plan: 07/30/2019-patient blood pressure today is 130/75. Stable. Plan is to continue the present management. 07/31/2019-patient has history of chronic essential hypertension blood pressure today is 128/76. Stable. (6) Leukocytosis Qualifiers: Leukocytosis type: unspecified Qualified Code(s): D72.829 - Elevated white blood cell count, unspecified Is this a current diagnosis for this admission?: Yes Plan: 07/30/2019-patient admitted with a WBC count of 21,000 improving daily it is 15,800 today. And is presently on IV levo floxacillin. Cultures are negative and stool work-up is negative including C. difficile. 07/31/2019-on admission WBC count is 21,000 today it improved to 10.6. Leukocytosis is resolving. (7) Prostatic hypertrophy Is this a current diagnosis for this admission?: Yes (8) SIRS (systemic inflammatory response syndrome) Is this a current diagnosis for this admission?: Yes Plan: 07/30/2019-patient came in with elevated WBC count and elevated lactic acid levels meeting the criteria for SIRS. (9) Decubitus ulcer Is this a current diagnosis for this admission?: Yes Plan: For age 20-found to have a decubitus ulceration on examination today. Looks to me is a new development in the last 24 hours. Looks like stage II. Looks raw with sloughed skin and foul-smelling odor. Consultation with Dr. Acuña is requested. Wound cultures will be requested. - Plan Summary Summary: Patient is admitted to the telemetry floor where he will receive routine supportive and symptomatic cares. He will be continued on IV fluids and will also be continued with an indwelling Mack catheter. Urology consultation will be obtained when available. He will use Dilaudid 0.5 to 2 mg IV every 2 hours as needed for pain, using a sliding scale for dosage. He may have Ativan 1 mg IV every 4 hours as needed restlessness or anxiety. Serial lactic acids will be obtained. CBCs, metabolic profiles and magnesium levels will be obtained as n eeded. The patient's home medications for treatment of his hypertension and hyperlipidemia will be started, if appropriate, as soon as his medication list has been verified and reconciled. In the interim the patient will be treated with metoprolol tartrate 5 mg IV every 4 hours as needed for hypertension or tachycardia. Patient will be treated with a cardiac diet. A nicotine replacement patch will be available for the patient's use, if desired. 07/29/2019 Last night at 0500 temperature was 98.9 this morning at 0730 was 100.0 On admission white count was 21,100 later the same day 21,600 today 21,500 Urine cultures have come back negative x48 hours blood cultures negative x24 hours Patient yesterday and today is now having foul-smelling watery stools. Patient has been constipated for over a week he was given some prune juice yesterday and ever since then has had incontinent stool. PSA done on the date of admission is 9.13 however is not known if this was done prior to insertion of the Mack catheter or after. Patient is currently on Flomax, and Levaquin was started today. I spoke to urology today at [facility]. He recommended that we discharge the patient home we do so with a Mack catheter in place. Have the patient remove the Mack catheter the night before his appointment with urology. Also recommended that only the Flomax would be indicated at this time. I also asked the urologist about further studies, he said at this time nothing else seem to indicate further studies were needed. Patient was to be discharged today but due to his incontinent of stool I am checking him for C. difficile, treating him with Lomotil. We will continue the Levaquin IV until discharge at which time he should be switched to p.o.. Urine culture and blood cultures are negative. I have explained to the patient how to remove the Mack and he will get this teaching from nursing prior to discharge as well. Urology said they should see him about 7 days after discharge from the hospital. I have had a discussion with the patient concerning the above Patient was admitted with urinary obstruction, constipation, prostamegaly, fever, leuko-cytosis
[2019-07-31] MEDS: ATORVASTATIN CALCIUM 20 MG TABLET PO SCH (21:52)
--- NOTE | 2019-07-31 23:41 | PDOC CONSULTATION ---
Consultation Consult Date: 07/31/19 Provider Consulted: SURGICAL SURGICALIST Consult reason:: periirectal lesion and pain History of Present Illness Admission Date/PCP: 07/28/19 03:17 SILVIA ZAMBRANO MD Patient complains of: Perirectal pain History of Present Illness: YUNI CHEN is a 59 year old male seen in consultation at the request of the hospitalist service. The patient reports a 1 to 2-week history of worsening perirectal pain. He also reports urinary retention. The patient was admitted for fevers, Sirs response, and a UTI. The patient was noted to have a wound in his perirectal area, and surgery was consulted for evaluation and management. The patient reports a recent history of diarrhea. This is coincided with intense rectal pain and swelling. He describes his pain is sharp and stabbing. It was 10 out of 10 yesterday, but has subsided significantly over the last 24 hours. His pain does not radiate. He denies nausea, vomiting, chest pain, shortness of breath, headache, dizziness, orthostasis, fatigue, malaise, blurry vision. Past Medical History Cardiac Medical History: Reports: Hyperlipidema, Hypertension Denies: Atrial Fibrillation, Congestive Heart Failure, Coronary Artery Disease, DVT, Myocardial Infarction, Pulmonary Embolism Pulmonary Medical History: Denies: Asthma, Chronic Obstructive Pulmonary Disease (COPD) EENT Medical History: Denies: Cataracts, Ears - Hearing aids Neurological Medical History: Denies: Hemorrhagic CVA, Ischemic CVA, Seizures Endocrine Medical History: Denies: Diabetes Mellitus Type 1, Diabetes Mellitus Type 2, Hyperthyroidism, Hypothyroidism, Obesity Renal/ Medical History: Reports: Other - Benign prostatic hyperplasia Denies: Chronic Kidney Disease, Nephrolithiasis Malignancy Medical History: Reports: None GI Medical History: Denies: Cirrhosis, Crohn's Disease, Gastroesophageal Reflux Disease, Hepatitis, Peptic Ulcer Disease, Ulcerative Colitis Musculoskeltal Medical History: Denies: Arthritis, Gout Skin Medical History: Denies: Eczema, Psoriasis Psychiatric Medical History: Reports: Tobacco Dependency Denies: Alcohol Dependency, Substance Abuse Hematology: Denies: Anemia, Bleeding Tendencies Infectious Medical History: Reports: None Past Surgical History Past Surgical History: Reports: None Social History Lives with: Spouse/Significant other Smoking Status: Current Some Day Smoker Cigarettes Packs Per Day: 0.1 Electronic Cigarette use?: No Frequency of Alcohol Use: None Hx Recreational Drug Use: No Drugs: None Hx Prescription Drug Abuse: No - Advance Directive Resuscitation Status: Full Code Family History Family History: Reviewed & Not Pertinent Parental Family History Reviewed: Yes Children Family History Reviewed: Yes Sibling(s) Family History Reviewed.: Yes Medication/Allergy Home Medications: Atorvastatin Calcium [Lipitor 20 mg Tablet] 20 mg PO QHS 07/27/19 Tamsulosin HCl [Flomax] 0.4 mg PO DAILY 07/27/19 Amlodipine Besylate/Benazepril [Amlodipine-Benazepril 10-40 mg] 1 cap PO DAILY 07/28/19 Cholecalciferol (Vitamin D3) [Vitamin D3] 200 mcg PO DAILY 07/28/19 Allergies/Adverse Reactions: No Known Allergies Allergy (Unverified 07/27/19 13:36) Review of Systems Constitutional: ABSENT: anorexia, chills, fatigue, weakness Eyes: ABSENT: visual disturbances Ears: ABSENT: hearing changes Nose, Mouth, and Throat: ABSENT: sore throat Cardiovascular: ABSENT: chest pain Respiratory: ABSENT: cough, dyspnea Gastrointestinal: PRESENT: diarrhea, other - Perirectal pain and swelling. ABSENT: abdominal pain, hematemesis, hematochezia, melena, nausea, vomiting Genitourinary: PRESENT: dysuria Musculoskeletal: ABSENT: back pain Integumentary: ABSENT: rash Neurological: ABSENT: confusion, convulsions, dizziness Psychiatric: ABSENT: anxiety, depression Endocrine: ABSENT: cold intolerance, heat intolerance Hematologic/Lymphatic: ABSENT: easy bleeding, easy bruising Physical Exam Vital Signs: Temp Pulse Resp BP Pulse Ox 98.8 F 99 18 142/74 H 100 07/31/19 16:18 07/31/19 16:18 07/31/19 16:18 07/31/19 16:18 07/31/19 16:18 Intake & Output 07/30/19 07/31/19 08/01/19 06:59 06:59 06:59 Intake Total 1010 610 822 Output Total 1400 1625 375 Balance -390 -1015 447 Weight 85.3 kg 85.3 kg General appearance: PRESENT: no acute distress, cooperative Head exam: PRESENT: atraumatic, normocephalic Eye exam: PRESENT: EOMI, PERRLA. ABSENT: scleral icterus Mouth exam: PRESENT: moist, neck supple Neck exam: ABSENT: meningismus, tenderness, thyromegaly, tracheal deviation Respiratory exam: PRESENT: unlabored. ABSENT: tachypnea, wheezes Cardiovascular exam: ABSENT: tachycardia Pulses: PRESENT: normal radial pulses Vascular exam: PRESENT: normal capillary refill GI/Abdominal exam: PRESENT: soft. ABSENT: distended, firm, guarding, rigid, tenderness Rectal exam: PRESENT: other - Open wound in the perirectal area. Right posterior position. Adjacent to the anus. Extremities exam: ABSENT: clubbing Musculoskeletal exam: ABSENT: deformity Neurological exam: PRESENT: alert, awake, oriented to person, oriented to place, oriented to time, oriented to situation, CN II-XII grossly intact Psychiatric exam: ABSENT: agitated, anxious, depressed Focused psych exam: ABSENT: delusional Skin exam: ABSENT: cyanosis, jaundice Results Laboratory Results: 07/31/19 05:33 07/29/19 05:12 07/31/19 05:33 WBC 10.6 H RBC 4.56 Hgb 13.0 L Hct 37.9 MCV 83 MCH 28.5 MCHC 34.2 RDW 13.3 Plt Count 215 07/27/19 07/27/19 21:49 21:49 Creatine Kinase 462 H Troponin I < 0.012 NT-Pro-B Natriuret Pep 781 H Impressions: Abdomen/Pelvis CT 07/27/19 00:00 IMPRESSION: 1. Markedly distended urinary bladder and mild bilateral hydronephrosis suggestive of bladder outlet obstruction. Clinical correlation. 2. Prostatomegaly. This may contribute to the bladder outlet obstruction. 3. Mild hepatic steatosis. Chest X-Ray 07/27/19 20:55 IMPRESSION: No acute cardiopulmonary disease. Chest/Abdomen CTA 07/27/19 23:16 IMPRESSION: 1. No pulmonary embolism. 2. Mild volume loss in the lung bases right greater than left. KUB X-Ray 07/29/19 00:00 IMPRESSION: NO RADIOGRAPHIC EVIDENCE FOR ACUTE ABDOMINAL DISEASE. Assessment & Plan - Diagnosis (1) Perirectal abscess Is this a current diagnosis for this admission?: Yes - Plan Summary Plan Summary: This is a 59-year-old male with a wound in the perirectal area. The patient gives a history of a large amount of pain and swelling that has gradually worsened over the last 1 to 2 weeks. I believe the patient has suffered from a perirectal abscess, that he has neglected. The abscess spontaneously ruptured yesterday, and now the patient has a large wound in the area. There is no active purulence. There is no obviously necrotic tissue. I have made several recommendations for the patient. He should perform sitz baths 3 times daily with damp to dry dressing changes 3 times daily. I have relayed the importance of cleanliness in the healing of this wound. I have informed the patient that if he cannot keep the wound clean, and it worsens, he may require diverting colostomy for several months. The patient has expressed good understanding. He is currently on antibiotics for urinary tract infection. These should be sufficient to treat his perirectal abscess. The patient does not need any further surgical intervention at this time. Surgery will sign off. Please renotify with any questions or concerns. The patient should follow-up with [facility] next week for wound care and close clinical monitoring.
[2019-08-01] MEDS: HEPARIN SOD (PORCINE) 5,000 UNIT/ML 1 ML VIAL SUBCUT SCH (05:06)
[2019-08-01] MEDS: PANTOPRAZOLE SODIUM 40 MG TABLET.DR PO SCH (05:06)
[2019-08-01 05:41] LABS: HEMATOCRIT 37.3 % (37.9-51.0); HEMOGLOBIN 12.9 g/dL (13.5-17.0); MEAN CORPUSCULAR HEMOGLOBIN 28.8 pg (27.0-33.4); MEAN CORPUSCULAR HGB CONC 34.6 g/dL (32.0-36.0); MEAN CORPUSCULAR VOLUME 83 fl (80-97); PLATELET COUNT 210 10^3/uL (150-450); RED BLOOD COUNT 4.47 10^6/uL (4.35-5.55); RED CELL DISTRIBUTION WIDTH 13.7 % (11.5-14.0); WHITE BLOOD COUNT 8.6 10^3/uL (4.0-10.5)
[2019-08-01 05:52] LABS: ALBUMIN 3.1 g/dL (3.5-5.0); ALKALINE PHOSPHATASE 224 U/L (38-126); ANION GAP 8 (5-19); ASPARTATE AMINO TRANSFERASE 411 U/L (17-59); BILIRUBIN,DIRECT 0.3 mg/dL (0.0-0.4); BILIRUBIN,TOTAL 0.4 mg/dL (0.2-1.3); BLOOD UREA NITROGEN 16 mg/dL (7-20); CALCIUM 8.6 mg/dL (8.4-10.2); CARBON DIOXIDE 26 mmol/L (22-30); CHLORIDE 102 mmol/L (98-107); GLUCOSE 110 mg/dL (75-110); POTASSIUM 4.5 mmol/L (3.6-5.0); TOTAL PROTEIN 6.3 g/dL (6.3-8.2)
[2019-08-01 06:16] LABS: ABSOLUTE LYMPHOCYTES# (MANUAL) 2.1 10^3/uL (0.5-4.7); ABSOLUTE MONOCYTES # (MANUAL) 1.2 10^3/uL (0.1-1.4); BAND NEUTROPHILS % (MANUAL) 3 % (3-5); BASOPHILS % (MANUAL) 0 % (0-2); EOSINOPHILS % (MANUAL) 0 % (0-6); LYMPHOCYTES % (MANUAL) 22 % (13-45); MONOCYTES % (MANUAL) 14 % (3-13); SEGMENTED NEUTROPHILS % (MAN) 58 % (42-78); TOTAL CELLS COUNTED 100
[2019-08-01 06:17] LABS: PLATELET COMMENT ADEQUATE; TOXIC GRANULATION SLIGHT
[2019-08-01 06:20] LABS: MYELOCYTES % (MANUAL) 1 % (0)
[2019-08-01] MEDS: TAMSULOSIN HCL 0.4 MG CAP.SR.24H PO SCH (09:38)
[2019-08-01] MEDS: LEVOFLOXACIN 750 MG TABLET PO SCH (09:38)
--- NOTE | 2019-08-01 09:47 | PDOC DISCHARGE SUMMARY ---
Impression - Admit/DC Date/PCP Admission Date/Primary Care Provider: 07/28/19 03:17 SILVIA ZAMBRANO MD Discharge Date: 08/01/19 - Discharge Diagnosis (1) Acute urinary retention Is this a current diagnosis for this admission?: Yes (2) Bladder outlet obstruction Is this a current diagnosis for this admission?: Yes (3) Constipation Is this a current diagnosis for this admission?: Yes (4) Fever Is this a current diagnosis for this admission?: Yes (5) Hypertension Is this a current diagnosis for this admission?: No (6) Leukocytosis Is this a current diagnosis for this admission?: Yes (7) Prostatic hypertrophy Is this a current diagnosis for this admission?: Yes (8) SIRS (systemic inflammatory response syndrome) Is this a current diagnosis for this admission?: Yes (9) Decubitus ulcer Is this a current diagnosis for this admission?: Yes - Assessment Summary: Patient is admitted to the telemetry floor where he will receive routine supportive and symptomatic cares. He will be continued on IV fluids and will also be continued with an indwelling Mack catheter. Urology consultation will be obtained when available. He will use Dilaudid 0.5 to 2 mg IV every 2 hours as needed for pain, using a sliding scale for dosage. He may have Ativan 1 mg IV every 4 hours as needed restlessness or anxiety. Serial lactic acids will be obtained. CBCs, metabolic profiles and magnesium levels will be obtained as needed. The patient's home medications for treatment of his hypertension and hyperlipidemia will be started, if appropriate, as soon as his medication list has been verified and reconciled. In the interim the patient will be treated with metoprolol tartrate 5 mg IV every 4 hours as needed for hypertension or tachycardia. Patient will be treated with a cardiac diet. A nicotine replacement patch will be available for the patient's use, if desired. 07/29/2019 Last night at 0500 temperature was 98.9 this morning at 0730 was 100.0 On admission white count was 21,100 later the same day 21,600 today 21,500 Urine cultures have come back negative x48 hours blood cultures negative x24 hours Patient yesterday and today is now having foul-smelling watery stools. Patient has been constipated for over a week he was given some prune juice yesterday and ever since then has had incontinent stool. PSA done on the date of admission is 9.13 however is not known if this was done prior to insertion of the Mack catheter or after. Patient is currently on Flomax, and Levaquin was started today. I spoke to urology today at [facility]. He recommended that we discharge the patient home we do so with a Mack catheter in place. Have the patient remove the Mack catheter the night before his appointment with urology. Also recommended that only the Flomax would be indicated at this time. I also asked the urologist about further studies, he said at this time nothing else seem to indicate further studies were needed. Patient was to be discharged today but due to his incontinent of stool I am checking him for C. difficile, treating him with Lomotil. We will continue the Levaquin IV until discharge at which time he should be switched to p.o.. Urine culture and blood cultures are negative. I have explained to the patient how to remove the Mack and he will get this teaching from nursing prior to discharge as well. Urology said they should see him about 7 days after discharge from the hospital. I have had a discussion with the patient concerning the above Patient was admitted with urinary obstruction, constipation, prostamegaly, fever, leuko-cytosis - Additional Information Resuscitation Status: Full Code Discharge Activity: Activity As Tolerated Referrals: LUIS FERNANDO ACUÑA MD [ACTIVE STAFF] - (F/U NEXT WEEK) Prescriptions: Levofloxacin [Levaquin 750 mg Tablet] 750 mg PO DAILY #7 tablet Home Medications: Atorvastatin Calcium [Lipitor 20 mg Tablet] 20 mg PO QHS 07/27/19 Tamsulosin HCl [Flomax] 0.4 mg PO DAILY 07/27/19 Amlodipine Besylate/Benazepril [Amlodipine-Benazepril 10-40 mg] 1 cap PO DAILY 07/28/19 Cholecalciferol (Vitamin D3) [Vitamin D3] 200 mcg PO DAILY 07/28/19 Levofloxacin [Levaquin 750 mg Tablet] 750 mg PO DAILY #7 tablet 08/01/19 History of Present Illiness History of Present Illness: YUNI CHEN is a 59 year old male 59 year old male who presents the emergency room with a one-week history of constipation. He admits developing constipation about a week ago and tried [id number] laxatives without relief. 5 days ago he saw his primary care provider and was given a stool softener and rectal suppositories as treatment for hemorrhoids. He had very minimal results with this treatment and found that he had to strain very hard to produce very little stool. Since that time he is continued to be constipated and has developed difficulty passing his urine requiring a great deal of straining to produce very little urine with the need to urinate very frequently. He has also noted a gradually increasing pressure and fullness in his lower abdomen becoming exquisitely severe prior to his emergency room visit. He denies prior similar episodes. He denies other associated or accompanying signs and symptoms. He has not identified any additional aggravating or ameliorating factors for his constipation. In the emergency room he was found to have a fever of 101.4 F with a tachycardia in the 120s to 140s. His venous blood gases indicated severe hyperventilation. He was also noted to have a white blood count of 21,100 and a lactic acid of 2.1. He was treated with IV fluids and a Mack catheter was placed to remove approximately 2000 mL of urine from his urinary bladder. He was subsequently admitted to the hospital for further evaluation treatment. Hospital Course Hospital Course: 59-year-old male admitted with acute urinary retention secondary to bladder outlet obstruction due to enlarged prostate. He is with a Mack's catheter plan is to discharge him home tomorrow with Mack's catheter and advises to follow-up with neurologist in 1 week and to remove Mack's catheter 1 day prior to urology appointment. No acute events in the last 24 hours. Afebrile. C. difficile came back negative. No complaints of loose stools today. WBC count is still elevated at 15,800. 07/31/19--59-year-old male admitted for acute urinary retention secondary to prostate enlargement with a Mack's catheter he complains of severe diarrhea until yesterday C. difficile came back negative. On examination today found to have a foul-smelling pressure wounds on the buttocks. Call Dr. Acuña and he agreed to look at the patient today. Patient is going to hear of at least another day until surgery made the recommendations. 08[birth year]01/[id number]-rkrw-old male admitted with acute urinary retention Mack's cath was placed acute urinary retention most likely secondary to bladder outlet obstruction due to prostate enlargement. Patient is supposed to go home with Mack's catheter yesterday , and plan is to follow-up with urology. But on examination yesterday, found to have pressure-like wound in the on the buttocks and a surgical consult was requested. Dr. bruner evaluated the patient he thinks patient has a perirectal abscess rather and no surgical intervention needed at this time patient can go home with p.o. antibiotic therapy and follow-up with him as an outpatient. I discussed the plan with the patient this morning my advice for him is to stay at least over the weekend and to continue the antibiotic therapy because of the perirectal abscess. But the patient prefers to go home, he said he has help at home to do the wound care dressing changes and he will follow-up with Dr. Acuña in 3 to 5 days time. If the symptoms recur i strongly encouraged him to come to the ER [facility]. Physical Exam Vital Signs: Temp Pulse Resp BP Pulse Ox 98.4 F 97 16 141/79 H 99 08/01/19 03:34 08/01/19 07:00 08/01/19 03:34 08/01/19 03:34 08/01/19 03:34 Intake & Output 07/31/19 08/01/19 08/02/19 06:59 06:59 06:59 Intake Total 610 822 Output Total 1625 1255 Balance -1015 -433 Weight 85.3 kg 87.1 kg General appearance: PRESENT: no acute distress Head exam: PRESENT: atraumatic Eye exam: PRESENT: PERRLA Ear exam: PRESENT: normal external ear exam Mouth exam: PRESENT: moist, tongue midline Neck exam: ABSENT: carotid bruit, JVD, lymphadenopathy, thyromegaly Respiratory exam: PRESENT: clear to auscultation becca. ABSENT: rales, rhonchi, wheezes Cardiovascular exam: PRESENT: RRR. ABSENT: diastolic murmur, rubs, systolic murmur GI/Abdominal exam: PRESENT: normal bowel sounds, soft. ABSENT: distended, guarding, mass, organolmegaly, rebound, tenderness Rectal exam: PRESENT: deferred Extremities exam: PRESENT: full ROM. ABSENT: calf tenderness, clubbing, pedal edema Neurological exam: PRESENT: alert, awake, oriented to person, oriented to place, oriented to time, oriented to situation, CN II-XII grossly intact. ABSENT: motor sensory deficit Skin exam: PRESENT: other - Ruptured perirectal abscess with open wound in the buttock region. Results Laboratory Results: WBC 8.6 10^3/uL (4.0-10.5) 08/01/19 05:00 RBC 4.47 10^6/uL (4.35-5.55) 08/01/19 05:00 Hgb 12.9 g/dL (13.5-17.0) L 08/01/19 05:00 Hct 37.3 % (37.9-51.0) L 08/01/19 05:00 MCV 83 fl (80-97) 08/01/19 05:00 MCH 28.8 pg (27.0-33.4) 08/01/19 05:00 MCHC 34.6 g/dL (32.0-36.0) 08/01/19 05:00 RDW 13.7 % (11.5-14.0) 08/01/19 05:00 Plt Count 210 10^3/uL (150-450) 08/01/19 05:00 Lymph % (Auto) Not Reportable 08/01/19 05:00 [place] % (Auto) Not Reportable 08/01/19 05:00 Eos % (Auto) Not Reportable 08/01/19 05:00 Baso % (Auto) Not Reportable 08/01/19 05:00 Absolute Neuts (auto) Not Reportable 08/01/19 05:00 Absolute Lymphs (auto) Not Reportable 08/01/19 05:00 Absolute Monos (auto) Not Reportable 08/01/19 05:00 Absolute Eos (auto) Not Reportable 08/01/19 05:00 Absolute Basos (auto) Not Reportable 08/01/19 05:00 Total Counted 100 08/01/19 05:00 Seg Neutrophils % Not Reportable 08/01/19 05:00 Seg Neuts % (Manual) 58 % (42-78) 08/01/19 05:00 Band Neutrophils % 3 % (3-5) 08/01/19 05:00 Lymphocytes % (Manual) 22 % (13-45) 08/01/19 05:00 Atypical Lymphs % 2 % (0) 08/01/19 05:00 Monocytes % (Manual) 14 % (3-13) H 08/01/19 05:00 Eosinophils % (Manual) 0 % (0-6) 08/01/19 05:00 Basophils % (Manual) 0 % (0-2) 08/01/19 05:00 Myelocytes % 1 % (0) H 08/01/19 05:00 Abs Neuts (Manual) 5.3 10^3/uL (1.7-8.2) 08/01/19 05:00 Abs Lymphs (Manual) 2.1 10^3/uL (0.5-4.7) 08/01/19 05:00 Abs Monocytes (Manual) 1.2 10^3/uL (0.1-1.4) 08/01/19 05:00 Absolute Eos (Manual) 0.0 10^3/uL (0.0-0.6) 08/01/19 05:00 Abs Basophils (Manual) 0.0 10^3/uL (0.0-0.2) 08/01/19 05:00 Toxic Granulation SLIGHT 08/01/19 05:00 Toxic Vacuolation PRESENT 07/27/19 21:49 Platelet Comment ADEQUATE 08/01/19 05:00 Poikilocytosis SLIGHT 07/27/19 21:49 Dwayne Cells SLIGHT 07/27/19 21:49 PT 15.1 SEC (11.4-15.4) 07/27/19 14:00 INR 1.18 07/27/19 14:00 D-Dimer 4.34 ug/mL (0.00-0.50) H 07/27/19 21:49 VBG pH 7.49 (7.30-7.42) H 07/27/19 14:00 VBG pCO2 32.3 mmHg (35-63) L 07/27/19 14:00 VBG HCO3 24.2 mmol/L (20-32) 07/27/19 14:00 VBG Base Excess 1.6 mmol/L 07/27/19 14:00 Sodium 136.1 mmol/L (137-145) L 08/01/19 05:00 Potassium 4.5 mmol/L (3.6-5.0) 08/01/19 05:00 Chloride 102 mmol/L (98-107) 08/01/19 05:00 Carbon Dioxide 26 mmol/L (22-30) 08/01/19 05:00 Anion Gap 8 (5-19) 08/01/19 05:00 BUN 16 mg/dL (7-20) 08/01/19 05:00 Creatinine 1.15 mg/dL (0.52-1.25) 08/01/19 05:00 Est GFR ( Amer) > 60 (>60) 08/01/19 05:00 Est GFR (MDRD) Non-Af > 60 (>60) 08/01/19 05:00 Glucose 110 mg/dL (75-110) 08/01/19 05:00 POC Glucose 113 mg/dL (70-110) H 07/27/19 14:08 Lactic Acid 1.8 mmol/L (0.7-2.1) 07/28/19 11:57 Calcium 8.6 mg/dL (8.4-10.2) 08/01/19 05:00 Magnesium 2.1 mg/dL (1.6-2.3) 08/01/19 05:00 Total Bilirubin 0.4 mg/dL (0.2-1.3) 08/01/19 05:00 Direct Bilirubin 0.3 mg/dL (0.0-0.4) 08/01/19 05:00 Neonat Total Bilirubin Not Reportable 08/01/19 05:00 Neonat Direct Bilirubin Not Reportable 08/01/19 05:00 Neonat Indirect Bili Not Reportable 08/01/19 05:00 AST 411 U/L (17-59) H 08/01/19 05:00 ALT 289 U/L (<50) H 08/01/19 05:00 Alkaline Phosphatase 224 U/L (38-126) H 08/01/19 05:00 Creatine Kinase 462 U/L (55-170) H 07/27/19 21:49 Troponin I < 0.012 ng/mL 07/27/19 21:49 NT-Pro-B Natriuret Pep 781 pg/mL (<125) H 07/27/19 21:49 Total Protein 6.3 g/dL (6.3-8.2) 08/01/19 05:00 Albumin 3.1 g/dL (3.5-5.0) L 08/01/19 05:00 Triglycerides 166 mg/dL (<150) H 07/29/19 05:12 Cholesterol 102.69 mg/dL (0-200) 07/29/19 05:12 LDL Cholesterol Direct 32 mg/dL (<100) 07/29/19 05:12 VLDL Cholesterol 33.2 mg/dL (10-31) H 07/29/19 05:12 HDL Cholesterol 14 mg/dL (>40) L 07/29/19 05:12 Prostate Specific Ag 9.130 ng/mL (<4.00) H 07/27/19 21:49 TSH 1.91 uIU/mL (0.47-4.68) 07/27/19 21:49 Urine Color VIMAL 07/27/19 15:22 Urine Appearance SLIGHTLY-CLOUDY 07/27/19 15:22 Urine pH 5.0 (5.0-9.0) 07/27/19 15:22 Ur Specific [place] 1.018 07/27/19 15:22 Urine Protein 30 mg/dL (NEGATIVE) H 07/27/19 15:22 Urine Glucose (UA) NEGATIVE mg/dL (NEGATIVE) 07/27/19 15:22 Urine Ketones TRACE mg/dL (NEGATIVE) H 07/27/19 15:22 Urine Blood NEGATIVE (NEGATIVE) 07/27/19 15:22 Urine Nitrite (Reflex) NEGATIVE (NEGATIVE) 07/27/19 15:22 Urine Bilirubin NEGATIVE (NEGATIVE) 07/27/19 15:22 Urine Urobilinogen 2.0 mg/dL (<2.0) H 07/27/19 15:22 Leukocyte Esterase Rfl NEGATIVE (NEGATIVE) 07/27/19 15:22 Urine RBC (Auto) 2 /HPF 07/27/19 15:22 Urine Bacteria (Auto) TRACE /HPF 07/27/19 15:22 Urine WBC (Reflex) 2 /HPF 07/27/19 15:22 Urine Mucus (Auto) FEW /LPF 07/27/19 15:22 Urine Ascorbic Acid NEGATIVE (NEGATIVE) 07/27/19 15:22 Stl C. Difficile GDH Ag NEGATIVE (NEGATIVE) 07/29/19 23:40 Stl C.difficile Tox A&B NEGATIVE (NEGATIVE) 07/29/19 23:40 07/27/19 21:49 Troponin I < 0.012 NT-Pro-B Natriuret Pep 781 H Impressions: Abdomen/Pelvis CT 07/27/19 00:00 IMPRESSION: 1. Markedly distended urinary bladder and mild bilateral hydronephrosis suggestive of bladder outlet obstruction. Clinical correlation. 2. Prostatomegaly. This may contribute to the bladder outlet obstruction. 3. Mild hepatic steatosis. Chest X-Ray 07/27/19 20:55 IMPRESSION: No acute cardiopulmonary disease. Chest/Abdomen CTA 07/27/19 23:16 IMPRESSION: 1. No pulmonary embolism. 2. Mild volume loss in the lung bases right greater than left. KUB X-Ray 07/29/19 00:00 IMPRESSION: NO RADIOGRAPHIC EVIDENCE FOR ACUTE ABDOMINAL DISEASE. Plan Plan of Treatment: Patient is advised to do the dressing changes on daily basis and he was also advised to follow-up with Dr. Acuña in next few days. He was also advised to keep the Mack's catheter and he needs to follow-up with urology as an outp atient. Time Spent: Greater than 30 Minutes Stroke Is this a Stroke Patient?: No Acute Heart Failure - Is this a Heart Failure Patient?: No
[2019-08-01 10:45] VITALS: BP 131/70
[2019-08-01 11:12] LABS: PATH REVIEW PATHOLOGIST REVIEWED
== END 2019-08-01 12:51 | disposition home or self-care (01) | DRG 726 ==
LOC: ER 13:31 → EH 07-28 03:17 → 4S 07-28 04:00
PROVIDERS: ADMIT Emergency Medicine; ATTEND Internal Medicine
DX: N40.1 Benign prostatic hyperplasia with lower urinary tract symptoms (principal); N13.8 Other obstructive and reflux uropathy; R65.10 Systemic inflammatory response syndrome (SIRS) of non-infectious origin without acute organ dysfunction; K61.1 Rectal abscess; N39.0 Urinary tract infection, site not specified; L89.322 Pressure ulcer of left buttock, stage 2; L89.312 Pressure ulcer of right buttock, stage 2; K59.00 Constipation, unspecified; I10 Essential (primary) hypertension; E78.5 Hyperlipidemia, unspecified; R06.4 Hyperventilation; F17.210 Nicotine dependence, cigarettes, uncomplicated; Z79.899 Other long term (current) drug therapy; Z82.49 Family history of ischemic heart disease and other diseases of the circulatory system; Z83.42 Family history of familial hypercholesterolemia
CPT/HCPCS: 36415; 51702; 71045; 71275; 74018; 74177; 80048; 80053; 80061; 80076; 81001; 82550; 82803; 82962; 83605; 83735; 83880; 84153; 84443; 84484; 85025; 85027; 85379; 85610; 87040; 87070; 87075; 87077; 87086; 87186; 87205; 87324; 87449; 93005; 93010; 96361; 96365; 96367; 96375; 96376; 99285; J0696; J1170; J1644; J1956; J2270; J2405; J3490; J7030